=== PATIENT | male | born 1960 | race Caucasian/White ===

== ENCOUNTER 2016-08-04 00:14 | Emergency (ER) | payer SELFPAY ==
[~2016-08-04] VITALS: Ht 177.8 cm; Wt 77.3 kg
[2016-08-04 00:18] VITALS: BP 130/78; PULSE 104; RESP 20; O2SAT 97
--- NOTE | 2016-08-04 00:22 | ED.REPORT ---
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 The pain began suddenly and explosively, radiating up his back. The patient also reports left big toe numbness, bilateral flank pain, and testicle pain. He denies bowel incontinence, urinary incontinence, weakness, or other symptoms. The patient admits to smoking marijuana and drinking beer this evening. EMS found the patient with a BP of 139/97, a pulse of 88, a respiration rate of 16, and a pulse ox of 98% on RA. Nursing Notes Stated Complaint: BACK PAIN Chief Complaint: Back Pain or Injury Nursing Notes Reviewed: Yes Allergies: Coded Allergies: No Known Allergies (Verified , 10/24/03) Scheduled Tizanidine (Tizanidine) 4 Mg Tablet 4 MG PO TID Scheduled PRN Hydrocodone-Acetaminophen 5-325 mg (Hydrocodone-Acetaminophen 5-325 mg) 1 Each Tablet 1-2 TABLET PO QID PRN PRN For Pain Naproxen (Naprosyn) 500 Mg Tablet 500 MG PO BID PRN PRN For Pain General Time Seen by MD: 00:21 Chief Complaint Back pain Hx Obtained From: Patient Arrived By: Ambulance Sudden in Onset?: Yes Onset Occurred: Yesterday Symptom Duration: Since onset Caused by: Lifting Location: : Flank bilateral: Perispinal lumbar Quality: Painful Severity: Current: Moderate Severity: Maximum: Moderate Pertinent Negative: Relieved by nothing Recent Healthcare: No recent doctor visit Similar Sx Previous: Yes Past Medical History Past Medical History L4/L5 Spondylosis after a tractor fell on him in 1977 Past Surgical History Multiple open abdominal surgeries and splenectomy due to blunt abdominal trauma. Right wrist external fixator with subsequent reconstruction in the . Smoking History Current Every Day Smoker, Heavy Tobacco Smoker Social History Drug Use: THC Ambulatory Status Independent Review of Systems Constitutional: Denies: Fever Respiratory: Denies: Non-productive cough, Shortness of breath GI: Denies: Diarrhea, Vomiting Male: Reports Flank pain (Bilateral), Reports Testicular pain, Denies Incontinence Musculoskeletal: Reports: Back pain Neurologic: Reports: Numbness (Left big toe), Denies: Bladder dysfunction, Bowel dysfunction, Weakness Complete sys rev & neg: except as marked. Physical Exam Initial Vital Signs Vital Signs (First) Date Time Temp Pulse Resp B/P Pulse Ox O2 Delivery O2 Flow Rate FiO2 08/04/16 00:18 37.1 104 20 130/78 97 Room Air Initial VS: Reviewed Head / Eyes: Atraumatic, Normocephalic ENT: Conjunctiva normal, No scleral icterus Skin: Warm, Dry, No cyanosis Psychiatric: Mood/affect normal, Behavior normal, Normal thought content General/Constitutional: Awake, Alert Appearance / Presentation: Positive: In pain Patient is uncomfortable, rigid, and braced in bed No muscle wasting Respiratory / Chest: Breath sounds NL, Breath sounds = bilat, No respiratory distress Cardiovascular: Heart rate NL, Regular rhythm, Heart sounds NL Neurologic: Oriented X3, Speech NL Sensory Deficit: Positive: Lower extremity L (Great toe) Reflex Abnormality: Positive: Patella L... (1), Patellar R... (1) Lower extremity strength intact Interpretation & Diagnostics CT LUMBAR SPINE: CONCLUSION: Fracture of the superior endplate of L1 with 2-3 mm of bony retropulsion. Transmitted to ED by radiologist Last Laureano M.D. at 08/04/16 - 1:02:47 AM PDT Re-Eval/Medical Decision Med Decision/Clinical Course 56-year-old with prior back injury and L4-L5 spondylolisthesis presents to days after a lifting injury with an immediate intense pain in his upper lumbar back. He developed some tingling and numbness in the great toe of his left foot. No saddle anesthesia or incontinence. He is not improved over the past two days and continues in pain. CT scan of his L-spine reveals an endplate fracture of the superior margin of L1, with small amount of retropulsion and no impingement of the spinal canal otherwise. There are no fractures involving the posterior elements. This is felt to be a stable fracture. He does appear quite osteoporotic given his sex and age. Discussed with spine surgery at [facility], they will follow him up in 10-14 days. Home with Vicodin, tizanidine, and Naprosyn. Precautions discussed including incontinence progressive anesthesia or weakness. Source of Hx: Old records Re-Evaluation/Progress : Time of Eval: 02:40 Patient Status: Condition improved Re-Evaluation/Progress Note: Patient does not have a ride home until the morning. Discussed with patient CT results, [facility] consult, diagnosis, and plan for discharge in the morning. Follow-up and return to the ER instructions given. Patient agrees with plan for care and all questions were addressed. Consultation : Requested Call at: 01:51 Call Returned at: 02:25 Tile Layer Drainage: Agrees with eval, Agrees with plan Note: [facility], Spine Surgeon: Discussed patient's case. Agree with plan for discharge with close follow-up. Counseled Regarding: Diagnosis, Need for follow-up, When/why to return to ED Discharge & Departure Shift Change Sign-Out Response to Therapy: Improved Impression: Primary Impression: Compression fracture of L1 lumbar vertebra Encounter type: initial encounter Fracture type: closed Qualified Code: S32.010A - Wedge compression fracture of first lumbar vertebra, initial encounter for closed fracture Disposition: Home Discharge Condition All VS Reviewed: Yes Condition: Improved Patient Instructions: Lumbar Radiculopathy (ED), Thoracolumbar Fracture (ED) Additional Instructions: You have a compression fracture of the top of L1. This appears to be a stable fracture, but it does appear new. Return if you develop any difficulties with urination or bowel movements, or any progressive numbness or weakness. Vicodin up to four times daily if needed for pain. Naprosyn twice daily for baseline pain relief. Tizanidine three times daily for muscle relaxation Follow-up with your doctor in the office. Follow-up with [facility] spine clinic at [phone]. They would expect to see you in two weeks. Call tomorrow for follow-up. Referrals: Paulo aSnchez MD (PCP) Scribe Attestation Portions of this note were transcribed by Cynthia Crawford. I, Dr. Bills, personally performed the history, physical exam, and medical decision-making; I reviewed and confirmed the accuracy of the information in the transcribed note. Signed by: Martha Shah, 08/04/2016, 04:00 copies to: Paulo Sanchez MD, Christopher W MD Aug 04, 2016 00:22 CYNTHIA CRAWFORD Aug 04, 2016 00:32
[2016-08-04] MEDS ORDERED: Dexamethasone 20 mg/2 mL Oral Solution PO ONE (00:35)
[2016-08-04] MEDS ORDERED: HYDROcodone-APAP 5-325 mg Tablet PO ONE ×2 (00:35→02:50)
[2016-08-04] MEDS ORDERED: HYDR-4003 PO (02:54)
[2016-08-04] MEDS ORDERED: TIZA4TAB4 PO (02:54)
[2016-08-04] MEDS ORDERED: NAPR500T PO (02:54)
[2016-08-04] MEDS ORDERED: _HYDROcodone/APAP 5-325 mg Tablet PO PRN (03:10)
--- NOTE | 2016-08-04 09:12 | DRSVH ---
PROCEDURE: CT LUMBAR SPINE WITHOUT CONTRAST ([id number]) INDICATIONS: prior fx, pain after lift TECHNIQUE: Noncontrast 3 mm thick sections acquired from the T12 level to the sacrum. Sagittal and coronal refo rmats were constructed. For radiation dose reduction, the following was used: automated exposure co ntrol. COMPARISON: [facility], CT, THORACIC SPINE W/O CONTRAST, 11/21/2009, 18:44. [facility], CR, XR LUMBAR SPINE 2 OR 3VW, 12/27/2015, 14:24. FINDINGS: Image quality: Excellent. Bones: There is normal bony alignment. There is moderate vertebral body compression fracture at L1. There is minimal posterior displacement of L1 vertebral body without significant central canal steno sis. No suspicious lytic or blastic bony lesions. Central spinal caliber is of normal overall calibe r. No pars defects. Soft tissues: No retroperitoneal masses or hematomas. Scattered colonic diverticula are noted. Visua lized aorta is normal in caliber. Moderate aortic calcification secondary to atherosclerosis. IMPRESSION: 1. Moderate compression fracture of L1 with minimal posterior displacement. 2. Moderate atherosclerosis. 3. Mild diverticulosis. No significant discrepancy with the recycling operations manager radiology preliminary report. Dictated by: Marla Mayes M.D. on 08/04/2016 at 8:04 Approved by: Marla Mayes M.D. on 08/04/2016 at 9:10
== END 2016-08-04 02:54 | disposition home or self-care (01) ==
LOC: SED 00:14
DX: S32.010A Wedge compression fracture of first lumbar vertebra, initial encounter for closed fracture (principal); X50.0XXA Overexertion from strenuous movement or load, initial encounter; Y93.89 Activity, other specified; Y92.9 Unspecified place or not applicable; Y99.8 Other external cause status; F17.200 Nicotine dependence, unspecified, uncomplicated
CPT/HCPCS: 72131; 96372; 99284; J1885